=== PATIENT | male | born 1930 | race Native Hawaiian/Other Pacific Islander ===

== ENCOUNTER 2021-01-14 09:22 | Outpatient (CLI) | payer OTHER | END 2021-01-14 21:28 | disposition home or self-care (01) | LOC: US 09:22 | PROVIDERS: ATTEND Internal Medicine | DX: R27.0 Ataxia, unspecified (principal); I70.213 Atherosclerosis of native arteries of extremities with intermittent claudication, bilateral legs | CPT/HCPCS: 36415; 82565; 84520 ==